=== PATIENT | male | born 1995 | race Caucasian/White ===

== ENCOUNTER 2024-06-18 20:59 | Emergency (ER) | payer OTHER ==
[~2024-06-18] VITALS: Ht 175.3 cm; Wt 93.0 kg
[2024-06-18 21:02] VITALS: O2SAT 98
[2024-06-19] MEDS: KETOROLAC 15MG/ML VIAL IM ONE (00:52)
[2024-06-19 01:57] VITALS: BP 148/96; PULSE 89; RESP 17; TEMP 37.1; O2SAT 99
== END 2024-06-19 01:56 | disposition home or self-care (01) ==
LOC: ER 20:59
DX: F41.8 Other specified anxiety disorders (principal)
CPT/HCPCS: 99283; 96372; J1885